=== PATIENT | male | born 1970 | race Caucasian/White ===

== ENCOUNTER 2021-12-13 05:37 | Emergency (ER) | payer SELFPAY ==
[2021-12-13 05:38] VITALS: BP 133/82; PULSE 98; RESP 17; TEMP 36.4; O2SAT 98; BMI 32.8
--- NOTE | 2021-12-13 06:03 | XRR_ITS ---
PROCEDURE INFORMATION: Exam: XR Chest Exam date and time: 12/13/2021 6:05 AM Age: 50 years old Clinical indication: Cough and fever and shortness of breath; Additional info: Dyspnea/cough TECHNIQUE: Imaging protocol: Radiologic exam of the chest. Views: 1 view. COMPARISON: CR XR chest 2V* [id number] 02/11/2020 1:14 PM FINDINGS: Lungs: No significant or acute findings. No consolidation. Pleural spaces: No significant costophrenic angle blunting. No pneumothorax. Heart/Mediastinum: Heart size is normal. Bones/joints: Old posterior left 7th rib fracture with callus formation. XR/XR chest 1V portable [id number] IMPRESSION: No acute abnormality demonstrated.
[2021-12-13 06:09] VITALS: BP 160/77; PULSE 88; RESP 18; O2SAT 99
--- NOTE | 2021-12-13 06:11 | ED_ITS ---
HPI - Dizziness General: Chief Complaint: Dizziness Stated Complaint: N\V Blood Pressure High\Fever Time Seen by Provider: 12/13/21 05:52 Source: patient Mode of arrival: ambulatory History of Present Illness: HPI Narrative: 50-year-old male presents emergency room complaining of nausea and vomiting. Began yesterday. He also likes blood pressure elevated is complaining some mild nondescript chest pain no shortness of breath but he does have a nonproductive cough he is not had any diarrhea he has had nausea vomiting some slight dizziness no true vertiginous symptoms. Subjective fever he is complaining little bit of right ear discomfort as well. No focal neurologic deficits noted. He does have a history of coronary disease there is no radiation of the chest discomfort into the neck arms or back. Generally just does not feel well. MD elicited complaint: dizziness Onset (ago): day(s) (1) Timing: gradual onset Severity: mild Description: lightheadedness Exacerbating factors: nothing Relieving factors: nothing Associated symptoms: Reports chest pain, cough, ear pressure, headache(s), malaise, nausea and vomiting; Denies change in hearing, chills, diaphoresis, ear discharge, fevers/chills, nasal congestion, palpitations, rash, short of breath, syncope, tinnitus or weakness Associated neuro symptoms: Deny confusion, difficulty speaking, dysphagia, diplopia, extremity weakness, facial numbness, facial weakness, gait changes, numbness in extremities or visual changes Review of Systems Const: Reports: malaise; Denies: chills or diaphoresis ENMT: Denies: ear discharge, change in hearing, tinnitus or nasal congestion Card: Reports: chest pain; Denies: palpitations or syncope Resp: Denies: dyspnea, productive cough or non-productive cough GI: Reports: nausea and vomiting; Denies: dysphagia : Denies: flank pain, dysuria, urinary frequency or urinary urgency Skin/Breast: Denies: rash or pruritus Neuro: Reports: headache(s); Denies: numbness in extremities or confusion PFS ED PFSH: Medical History (Updated 12/13/21 @ 09:07 by Lev Baugh DO) Hypertension Social History (Updated 12/13/21 @ 06:22 by Lev Baugh DO) Smoking and tobacco status: never smoked Alcohol intake: current Physical Exam Const: GENERAL APPEARANCE: cooperative and comfortable ORIENTATION/CONSCIOUSNESS: Yes awake, Yes oriented to person, Yes oriented to place and Yes oriented to time HENMT: COMMON NORMALS: normocephalic, atraumatic and hearing grossly normal bilaterally HEAD & SCALP: normocephalic and atraumatic Resp: COMMON NORMALS: normal respiratory effort, No retractions, No use of accessory muscles and clear to auscultation bilaterally AUSCULTATION: clear to auscultation bilaterally Cardio: COMMON NORMALS: regular rate, regular rhythm and No murmurs present (Cardio) RATE: regular rate RHYTHM: regular rhythm GI: COMMON NORMALS: Soft to palpation and No hepatosplenomegaly present AUSCULTATION: Yes normoactive bowel sounds PALPATION: Yes Soft to palpation, No Tenderness to palpation present (GI), No Guarding due to palpation present (GI) and Yes No hepatosplenomegaly present Extremity: COMMON NORMALS: normal to inspection, capillary refill normal, no clubbing, cyanosis or edema, no calf tenderness and no pedal edema Neuro: SENSORIUM/ORIENTATION: Yes oriented to person, Yes oriented to place an d Yes oriented to time Skin: COMMON NORMALS: no rashes or lesions noted GENERAL SKIN EXAM: no rashes or lesions noted Course Vital Signs: Vital signs: Vital Signs Temperature 97.6 F 12/13/21 05:38 Pulse Rate 88 12/13/21 08:05 Respiratory Rate 16 12/13/21 08:05 Blood Pressure 124/77 12/13/21 08:05 Pulse Oximetry 98 12/13/21 08:05 Oxygen Delivery Me thod 12/13/21 08:05 MDM - Dizziness Medical Decision Making Cardiac enzymes negative EKG unremarkable. Suspect patient's chest discomfort is related to his GI symptoms does not sound cardiac in nature he describes it with associated low-grade fever. We will discharge patient home he is feeling better after the fluids. Antiemetics as needed GlucoDock 24 to 48 hours and advance as tolerated. His COVID was negative. Medical Records I reviewed the patient's medical records. Lab Data I reviewed the patient's lab results. : 12/13/21 06:20 12/13/21 06:20 Radiology Impressions Chest X-Ray 12/13/21 06:03 IMPRESSION: No acute abnormality demonstrated. Laboratory Results WBC 5.0 10^3/uL (4.0-10.0) 12/13/21 06:20 RBC 3.92 10^6/uL (4.1-5.3) L 12/13/21 06:20 Hgb 14.1 g/dL (11.7-16.6) 12/13/21 06:20 Hct 42.1 % (42.0-52.0) 12/13/21 06:20 MCV 107.4 fl (80-94) H 12/13/21 06:20 MCH 36.0 pg (28.0-34.0) H 12/13/21 06:20 MCHC 33.5 g/dL (30.0-36.0) 12/13/21 06:20 RDW 12.3 % (12.1-15.1) 12/13/21 06:20 Plt Count 235 10^3/cmm (130-400) 12/13/21 06:20 MPV 10.7 fL (7.4-10.4) H 12/13/21 06:20 Neut % (Auto) 44.5 % 12/13/21 06:20 Lymph % (Auto) 36.9 % 12/13/21 06:20 [place] % (Auto) 8.8 % 12/13/21 06:20 Eos % (Auto) 8.6 % 12/13/21 06:20 Baso % (Auto) 1.0 % 12/13/21 06:20 Neut # (Auto) 2.22 10^3/uL (1.8-7.7) 12/13/21 06:20 Lymph # (Auto) 1.8 10^3/uL (0.8-4.8) 12/13/21 06:20 [place] # (Auto) 0.4 10^3/uL (0.2-0.9) 12/13/21 06:20 Eos # (Auto) 0.4 10^3/uL (0.0-0.8) 12/13/21 06:20 Baso # (Auto) 0.1 10^3/uL (0.0-0.1) 12/13/21 06:20 Nucleated RBC % (auto) 0 % 12/13/21 06:20 Nucleated RBCs # 0.0 /100WBC 12/13/21 06:20 Sodium 138 mmol/L (136-145) 12/13/21 06:20 Potassium 3.8 mmol/L (3.5-5.1) 12/13/21 06:20 Chloride 102 mmol/L (98-107) 12/13/21 06:20 Carbon Dioxide 22 mmol/L (22-29) 12/13/21 06:20 Anion Gap 17.8 (5-19) 12/13/21 06:20 BUN 14 mg/dL (6-20) 12/13/21 06:20 Creatinine 0.6 mg/dL (0.7-1.2) L 12/13/21 06:20 GFR Calculation 142.0 mL/min (90-130) H 12/13/21 06:20 Glucose 206 mg/dL (65-115) H 12/13/21 06:20 Calculated Osmolality 292 mOsm/kg (285-295) 12/13/21 06:20 Calcium 9.1 mg/dL (8.5-10.5) 12/13/21 06:20 Total Bilirubin 0.3 mg/dL (0.15-1.2) 12/13/21 06:20 AST 15 U/L (0-40) 12/13/21 06:20 ALT 19 U/L (0-41) 12/13/21 06:20 Alkaline Phosphatase 85 U/L (40-130) 12/13/21 06:20 Troponin T Baseline 7 ng/L (0-15) 12/13/21 06:20 Troponin T 120 Minute 9.42 ng/L (0-15) 12/13/21 08:27 Total Protein 6.5 g/dL (6.6-8.7) L 12/13/21 06:20 Albumin 3.7 g/dL (3.5-5.2) 12/13/21 06:20 Globulin 2.8 g/dL (1.3-4.6) 12/13/21 06:20 Coronavirus 229E (PCR) Not detected (NOT DETECT) 12/13/21 06:20 SARS-CoV-2 (PCR) Not detected (NOT DETECT) 12/13/21 06:20 Discharge Plan Discharge Patient Disposition: Home Clinical Impression: Gastroenteritis, Atypical chest pain Condition: Stable Prescriptions: New ondansetron HCl 4 mg tablet 4 mg PO Q6H PRN (Reason: nausea and vomiting) Qty: 20 0RF Discharge Orders: Discharge ED (Routine); Ordered 12/13/21 Ordered By: Lev Baugh Discharge Diet: Clear Liquid Discharge Activity: Increase activity as tolerated Patient Instructions: Opioid Safety, Pain Management Activity Restrictions/Additional Instructions: Clear liquid diet 24 to 48 hours advance as tolerated. 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
--- NOTE | 2021-12-13 06:18 | ECG_ITS ---
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 Measurements Intervals [place] Rate: 86 P: 56 IN: 141 QRS: 0 QRSD: 83 T: 62 QT: 399 QTc: 480 Interpretive Statements SINUS RHYTHM SEPTAL MYOCARDIAL INFARCTION , PROBABLY OLD [40+ ms Q WAVE IN V1/V2] Compared to ECG 11/06/2018 08:43:44 Myocardial infarct finding now present Short IN interval no longer present Electronically Signed On 12-13-2021 10:41:23 CDT by Catherine Mckeon M.D. [id number]
[2021-12-13] MEDS: ondansetron 2 mg/ML SDV 2 mL 4 MG IVP (06:28)
[2021-12-13] MEDS: sodium chloride 0.9% 1,000 ML 999 ML IV (06:30)
[2021-12-13 06:31] VITALS: BP 148/82; PULSE 84; RESP 18; O2SAT 98
[2021-12-13 06:42] LABS: Basophils # 0.1 10^3/uL (0.0-0.1); Eosinophils # 0.4 10^3/uL (0.0-0.8); Eosinophils % 8.6 %; Hematocrit 42.1 % (42.0-52.0); Hemoglobin 14.1 g/dL (11.7-16.6); Lymphocytes # 1.8 10^3/uL (0.8-4.8); Lymphocytes % 36.9 %; Mean Corpuscular HGB Conc 33.5 g/dL (30.0-36.0); Mean Corpuscular Volume 107.4 fl (80-94); Mean Platelet Volume 10.7 fL (7.4-10.4); Monocytes # 0.4 10^3/uL (0.2-0.9); Monocytes % 8.8 %; Neutrophils # 2.22 10^3/uL (1.8-7.7); Neutrophils % 44.5 %; Nucleated Red Blood Cells % 0 %; Platelet Count 235 10^3/cmm (130-400); Red Blood Count 3.92 10^6/uL (4.1-5.3); Red Cell Distribution Width 12.3 % (12.1-15.1)
[2021-12-13 06:52] VITALS: BP 137/88; PULSE 80; RESP 18; O2SAT 98
[2021-12-13 06:58] LABS: Alanine Aminotransferase 19 U/L (0-41); Albumin Level 3.7 g/dL (3.5-5.2); Alkaline Phosphatase 85 U/L (40-130); Anion Gap 17.8 (5-19); Aspartate Amino Transferase 15 U/L (0-40); Blood Urea Nitrogen 14 mg/dL (6-20); Calcium 9.1 mg/dL (8.5-10.5); Carbon Dioxide 22 mmol/L (22-29); Chloride 102 mmol/L (98-107); Globulin 2.8 g/dL (1.3-4.6); Glucose 206 mg/dL (65-115); Osmolality Calculated 292 mOsm/kg (285-295); Potassium 3.8 mmol/L (3.5-5.1); Sodium 138 mmol/L (136-145); Total Bilirubin 0.3 mg/dL (0.15-1.2); Total Protein 6.5 g/dL (6.6-8.7)
[2021-12-13 06:59] LABS: Troponin(5th) Baseline 7 ng/L (0-15)
[2021-12-13 07:00] LABS: Creatinine Clr Calc Pharmacy 160.2033
[2021-12-13 08:05] VITALS: BP 124/77; PULSE 88; RESP 16; O2SAT 98
--- NOTE | 2021-12-13 08:28 | ECG_ITS ---
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 Measurements Intervals [place] Rate: 77 P: 66 MO: 143 QRS: 15 QRSD: 86 T: 62 QT: 413 QTc: 470 Interpretive Statements SINUS RHYTHM SEPTAL MYOCARDIAL INFARCTION , PROBABLY OLD [40+ ms Q WAVE IN V1/V2] Compared to ECG 12/13/2021 06:18:19 No significant changes Electronically Signed On 12-13-2021 10:42:28 CDT by Catherine Mckeon M.D. [id number]
[2021-12-13 08:29] LABS: Adenovirus Not Detected (NOT DETECT); Chlamydia Pneumoniae Not Detected (NOT DETECT); Coronavirus 229E,HKU1,NL63,OC4 Not Detected (NOT DETECT); Human Metapneumovirus Not Detected (NOT DETECT); Human Rhinovirus/Enterovirus Not Detected (NOT DETECT); Influenza A Not Detected (NOT DETECT); Influenza A H1 Not Detected (NOT DETECT); Influenza A H1-2009 Not Detected (NOT DETECT); Influenza A H3 Not Detected (NOT DETECT); Influenza B Not Detected (NOT DETECT); Mycoplasma Pneumoniae Not Detected (NOT DETECT); Parainfluenza Virus Type 1 Not Detected (NOT DETECT); Parainfluenza Virus Type 2 Not Detected (NOT DETECT); Parainfluenza Virus Type 3 Not Detected (NOT DETECT); Parainfluenza Virus Type 4 Not Detected (NOT DETECT); Respiratory Syncytial Virus A Not Detected (NOT DETECT); Respiratory Syncytial Virus B Not Detected (NOT DETECT); SARS-COV-2 Not Detected (NOT DETECT)
[2021-12-13 09:03] LABS: Troponin 5 2HR 9.42 ng/L (0-15)
[2021-12-13 09:17] LABS: Troponin 5 2HR Delta 2.42 ABS# (0-10)
[2021-12-13 09:18] VITALS: BP 149/82; PULSE 81; RESP 16; O2SAT 98
== END 2021-12-13 09:20 | disposition home or self-care (01) ==
PROVIDERS: Emergency Provider Family Medicine
DX: K52.9 Noninfective gastroenteritis and colitis, unspecified (principal); R07.89 Other chest pain; Z20.822 Contact with and (suspected) exposure to COVID-19; I10 Essential (primary) hypertension
CPT/HCPCS: 71045; 80053; 84484; 85025; 87635; 93005; 96361; 96374; 99285; J2405; J7030

== ENCOUNTER 2023-07-26 09:33 | Emergency (ER) | payer SELFPAY ==
[2023-07-26 09:38] VITALS: BP 138/73; PULSE 73; RESP 16; TEMP 36.6; O2SAT 96; BMI 31.3
--- NOTE | 2023-07-26 09:54 | CT_ITS ---
WS: [id number] CT ABDOMEN PELVIS TECHNIQUE: Contrast-enhanced CT of the abdomen and pelvis with coronal and sagittal reformatted image s. CLINICAL INFORMATION: abd pain COMPARISON: None. DLP: 855.[address] scans at [facility] use at least one of these dose optimization techniques: automated e xposure control; mA and/or kV adjustment per patient size (includes targeted exams where dose is matc hed to clinical indication); or iterative reconstruction. FINDINGS: Fat-containing RIGHT inguinal hernia with induration extending along the spermatic cord. Th is may be due to recent reduction. No herniated bowel. RIGHT testicular vein appears decompressed in the abdomen/pelvis. Consider ultrasound in further evaluation Mild hepatomegaly. Diffuse fatty infiltration of the liver. Normal gallbladder. Normal portal vein an d splenic vein. Normal GE junction. Normal pancreas. Small splenule. Normal spleen. Celiac and SMA ar e patent. Normal caliber abdominal aorta. Adrenal glands are normal. Normal renal parenchymal enhance ment. No hydronephrosis. Mild diffuse bladder wall thickening although bladder is decompressed. Recom mend correlation for cystitis/UTI. Prostate calcification. Mild prostate enlargement measuring 3.9 cm . Normal pancreas. Normal sigmoid colon. No evidence of small or large bowel obstruction. Mild RIGHT colon and cecal con stipation. Tiny fat-containing umbilical hernia. No evidence of acute appendicitis. Suggestion of a t iny appendix. CT/CT abdomen pelvis w con* [id number] IMPRESSION: 1. Fat-containing RIGHT inguinal hernia with a small amount of induration. No herniated bowel. Recommend correlation for RIGHT groin pain. Ultrasound can be used in further evaluation 2. Bladder is decompressed with mild diffuse wall thickening. Recommend correl ation for cystitis/UTI. 3. Mild prostate enlargement. 4. Mild diffuse fatty infiltration of the liver. 5. Mild RIGHT colon and cecal constipation. 6. No other remarkable findings. Notified Puneet Winston MD at 07/26/2023 10:44 AM.
--- NOTE | 2023-07-26 09:55 | ED_ITS ---
HPI - Abdominal Pain 2 General: Chief Complaint: Abdominal Pain Stated Complaint: lower abd pain Time Seen by Provider: 07/26/23 09:51 Source: patient Mode of arrival: ambulatory Limitations: no limitations History of Present Illness: 52-year-old male states that he was work ing in strain he has been having some right lower quadrant pain since then he states the bleeding had a hernia he said he had a hernia for quite some time he said it was protruding out but is now reduced and he feels improved he rates his pain a 3 out of 10 currently has not seen anyone for this in the past. Associated Symptoms: Denies chills, diarrhea, dysuria, fever(s), nausea and vomiting Review of Systems 2 Const: Denies: fever(s), chills, body aches or change in appetite ENMT: Denies: throat pain or dental pain Card: Denies: chest pain Resp: Denies: dyspnea GI: Reports: abdominal pain; Denies: nausea, vomiting or diarrhea : Denies: dysuria Musc: Denies: neck pain or back pain Skin/Breast: Denies: rash Neuro: Denies: headache(s) PFSH ED 2 PFSH: Medical History Hyperglycemia Hypertension Social History Smoking and tobacco/nicotine status: never used tobacco/nicotine Alcohol intake: current Physical Exam 2 Const: COMMON NORMALS: no acute distress, patient oriented x3 and healthy appearing HENMT: COMMON NORMALS: normocephalic and atraumatic HEAD & SCALP: n ormocephalic and atraumatic Neck/C-Spine: COMMON NORMALS: full ROM and supple Chest: COMMONS NORMALS: normal inspection of the chest Resp: COMMON NORMALS: normal respiratory effort and No use of accessory muscles Cardio: COMMON NORMALS: regular rate, regular rhythm and No murmurs present (Cardio) RATE: regular rate RHYTHM: regular rhythm GI: COMMON NORMALS: Normal to inspection, nondistended, normoactive bowel sounds present, Soft to palpation and no masses PALPATION: Yes Soft to palpation OTHER: rlq tenderness no hernia at this time Extremity: COMMON NORMALS: normal to inspection and full ROM Neuro: COMMON NORMALS: patient oriented x3, moves all extremities and no focal motor deficits Psych: COMMON NORMALS: mental status grossly normal, Normal thought process present and cooperative THOUGHT PROCESS: Normal thought process present Skin: COMMON NORMALS: no rashes or lesions noted and no wounds GENERAL SKIN EXAM: no rashes or lesions noted Course 2 Vital Signs: Vital signs: Vital Signs Temperature 97.8 F 07/26/23 09:38 Pulse Rate 70 07/26/23 11:46 Respiratory Rate 16 07/26/23 10:19 Blood Pressure 155/82 07/26/23 11:46 Pulse Oximetry 98 07/26/23 11:46 Oxygen Delivery Me thod Room Air 07/26/23 11:46 MDM - Abdominal Pain Medical Decision Making Patient presents here with abdominal pain imaging does show a right inguinal hernia he has no signs of incarceration he stable for discharge he is to follow- up with surgery return if worsening he understands agrees to plan. Medical Records I reviewed the patient's medical records. Lab Data I reviewed the patient's lab results. 07/26/23 09:49 07/26/23 09:49 Labs/Radiology: Radiology Impressions Abdomen/Pelvis CT 07/26/23 09:54 IMPRESSION: 1. Fat-containing RIGHT inguinal hernia with a small amount of induration. No herniated bowel. Recommend correlation for RIGHT groin pain. Ultrasound can be used in further evaluation 2. Bladder is decompressed with mild diffuse wall thickening. Recommend correlation for cystitis/UTI. 3. Mild prostate enlargement. 4. Mild diffuse fatty infiltration of the liver. 5. Mild RIGHT colon and cecal constipation. 6. No other remarkable findings. Notified Puneet Winston MD at 07/26/2023 10:44 AM. Scrotum Ultrasound 07/26/23 10:43 IMPRESSION: 1. Small RIGHT hydrocele 2. Normal vascularity to both testicles. No torsion. 3. Small LEFT testicle likely due to developmental undescended LEFT testicle with corrective surgery 4. Heterogeneous appearance to the epididymis but no evidence of epididymitis. Normal vascularity. 5. Spermatic cords appear normal Laboratory Results WBC 6.21 10^3/uL (3.29-11.43) 07/26/23 09:49 RBC 4.48 10^6/uL (3.85-5.65) 07/26/23 09:49 Hgb 15.10 g/dL (11.27-16.99) 07/26/23 09:49 Hct 45.0 % (37-53) 07/26/23 09:49 MCV 100.4 fl (82-101) 07/26/23 09:49 MCH 33.7 pg (27-33) H 07/26/23 09:49 MCHC 33.6 g/dL (30-55) 07/26/23 09:49 RDW 11.6 % (12.1-15.1) L 07/26/23 09:49 Plt Count 257 10^3/cmm (157-399) 07/26/23 09:49 MPV 10.1 fL (7.4-10.4) 07/26/23 09:49 Neut % (Auto) 55.8 % 07/26/23 09:49 Lymph % (Auto) 31.1 % 07/26/23 09:49 [place] % (Auto) 7.4 % 07/26/23 09:49 Eos % (Auto) 4.5 % 07/26/23 09:49 Baso % (Auto) 1.0 % 07/26/23 09:49 Neut # (Auto) 3.47 10^3/uL (1.8-7.7) 07/26/23 09:49 Lymph # (Auto) 1.9 10^3/uL (0.8-4.8) 07/26/23 09:49 [place] # (Auto) 0.5 10^3/uL (0.2-0.9) 07/26/23 09:49 Eos # (Auto) 0.3 10^3/uL (0.0-0.8) 07/26/23 09:49 Baso # (Auto) 0.1 10^3/uL (0.0-0.1) 07/26/23 09:49 Nucleated RBC % (auto) 0 % 07/26/23 09:49 Nucleated RBCs # 0.0 /100WBC 07/26/23 09:49 Sodium 135 mmol/L (136-145) L 07/26/23 09:49 Potassium 4.4 mmol/L (3.5-5.1) 07/26/23 09:49 Chloride 101 mmol/L (98-107) 07/26/23 09:49 Carbon Dioxide 25 mmol/L (22-29) 05/30/24 09:49 Anion Gap 13.4 (5-19) 07/26/23 09:49 BUN 10 mg/dL (6-20) 07/26/23 09:49 Creatinine 0.8 mg/dL (0.7-1.2) 07/26/23 09:49 GFR Calculation 101.1 mL/min (90-130) 07/26/23 09:49 Glucose 181 mg/dL (65-115) H 07/26/23 09:49 Calculated Osmolality 284 mOsm/kg (285-295) L 07/26/23 09:49 Calcium 9.2 mg/dL (8.5-10.5) 07/26/23 09:49 Total Bilirubin 0.3 mg/dL (0.15-1.2) 07/26/23 09:49 AST 21 U/L (0-40) 07/26/23 09:49 ALT 22 U/L (0-41) 07/26/23 09:49 Alkaline Phosphatase 84 U/L (40-130) 07/26/23 09:49 Total Protein 7.1 g/dL (6.6-8.7) 07/26/23 09:49 Albumin 4.2 g/dL (3.5-5.2) 07/26/23 09:49 Globulin 2.9 g/dL (1.3-4.6) 07/26/23 09:49 Lipase 34 U/L (13-60) 07/26/23 09:49 Urine Color Yellow (Yellow) 07/26/23 11:40 Urine Appearance Clear (CLEAR) 07/26/23 11:40 Urine pH 5 (5-7) 07/26/23 11:[address] 1.025 (1.005-1.030) 07/26/23 11:40 Urine Protein Neg (Negative) 07/26/23 11:40 Urine Glucose (UA) Norm (Normal) 07/26/23 11:40 Urine Ketones Negative (Negative) 07/26/23 11:40 Urine Blood Neg (Negative) 07/26/23 11:40 Urine Nitrate Negative (Negative) 07/26/23 11:40 Urine Bilirubin Neg (Negative) 07/26/23 11:40 Urine Urobilinogen Norm mg/dL (Negative) 07/26/23 11:40 Ur Leukocyte Esterase Negative (Negative) 07/26/23 11:40 All radiology interpretation(s) finalized by discharge Discharge Plan Discharge Patient Disposition: Home Clinical Impression: Abdominal pain, Hernia, inguinal, right Condition: Stable Prescriptions: No Action No Known Home Medications Discharge Orders: Discharge ED (Routine); Ordered 07/26/23 Ordered By: Puneet Winston Referrals: Keagan Mack DO [Physician] - 1-3 days Discharge Diet: Advance as tolerated Discharge Activity: Resume usual activity Patient Instructions: Inguinal Hernia (ED), Abdominal Pain (ED) Coding Level of Care Code ED Chief I Dispatcher for Leonel Cintron
[2023-07-26 09:58] LABS: Basophils # 0.1 10^3/uL (0.0-0.1); Eosinophils # 0.3 10^3/uL (0.0-0.8); Eosinophils % 4.5 %; Lymphocytes # 1.9 10^3/uL (0.8-4.8); Lymphocytes % 31.1 %; Mean Corpuscular HGB Conc 33.6 g/dL (30-55); Mean Corpuscular Hemoglobin 33.7 pg (27-33); Mean Corpuscular Volume 100.4 fl (82-101); Mean Platelet Volume 10.1 fL (7.4-10.4); Monocytes # 0.5 10^3/uL (0.2-0.9); Monocytes % 7.4 %; Neutrophils # 3.47 10^3/uL (1.8-7.7); Neutrophils % 55.8 %; Nucleated Red Blood Cells % 0 %; Platelet Count 257 10^3/cmm (157-399); Red Blood Count 4.48 10^6/uL (3.85-5.65); Red Cell Distribution Width 11.6 % (12.1-15.1); White Blood Count 6.21 10^3/uL (3.29-11.43)
[2023-07-26] MEDS: iohexol 350 mg/mL 500 mL Btl (per mL) IV (10:10)
[2023-07-26 10:16] LABS: Alanine Aminotransferase 22 U/L (0-41); Albumin Level 4.2 g/dL (3.5-5.2); Alkaline Phosphatase 84 U/L (40-130); Anion Gap 13.4 (5-19); Aspartate Amino Transferase 21 U/L (0-40); Blood Urea Nitrogen 10 mg/dL (6-20); Calcium 9.2 mg/dL (8.5-10.5); Carbon Dioxide 25 mmol/L (22-29); Chloride 101 mmol/L (98-107); Creatinine Clr Calc Pharmacy 114.7119; Globulin 2.9 g/dL (1.3-4.6); Glomerular Filtration Rate 101.1 mL/min (90-130); Glucose 181 mg/dL (65-115); Lipase 34 U/L (13-60); Osmolality Calculated 284 mOsm/kg (285-295); Potassium 4.4 mmol/L (3.5-5.1); Sodium 135 mmol/L (136-145); Total Bilirubin 0.3 mg/dL (0.15-1.2); Total Protein 7.1 g/dL (6.6-8.7)
[2023-07-26 10:19] VITALS: RESP 16
[2023-07-26] MEDS: morphine 4 mg/mL SDV 1 mL IVP (10:19)
[2023-07-26] MEDS: ondansetron 2 mg/ML SDV 2 mL 4 MG IVP (10:20)
[2023-07-26 10:22] VITALS: BP 155/82; PULSE 69; O2SAT 95
--- NOTE | 2023-07-26 10:43 | US_ITS ---
WS: [id number] SCROTAL ULTRASOUND EXAMINATION CLINICAL INFORMATION: test pain. Patient reports prior LEFT testicular surgery as child COMPARISON: None. FINDINGS: TESTES Normal RIGHT testicle. Smaller LEFT testicle likely due to prior undescended testicle Color Doppler: Normal color Doppler flow pattern. Right testes size: 2.7 cm x 3.5 cm x 3.4 cm. Left testes size: 1.5 cm x 2.8 cm x 1.9 cm. EPIDIDYMIDES Heterogeneous epididymis bilaterally with normal vascularity Color Doppler: Normal color Doppler flow pattern. Right epididymis size: 1.6 cm x 1.2 cm x 1.5 cm. Left epididymitis size: 0.8 cm x 0.8 cm x 1.0 cm. HYDROCELE Small RIGHT VARICOCELE None. OTHER FINDINGS None. US/US scrotum 15504 IMPRESSION: 1. Small RIGHT hydrocele 2. Normal vascularity to both testicles. No torsion. 3. Small LEFT testicle likely due to developmental undescended LEFT testicle w ith corrective surgery 4. Heterogeneous appearance to the epididymis but no evidence of epididymitis. Normal vascularity. 5. Spermatic cords appear normal
[2023-07-26 11:46] VITALS: BP 155/82; PULSE 70; O2SAT 98
[2023-07-26 11:46] LABS: Add Urine Microscopic? NO; Charge for UA Resulting for Rev
[2023-07-26 11:54] LABS: Bilirubin Urine Neg (Negative); Blood Urine Neg (Negative); Glucose Urine UA Norm (Normal); Ketones Urine Negative (Negative); Leukocyte Esterase Urine Negative (Negative); Nitrate Urine Negative (Negative); Protein Urine Neg (Negative); Specific Gravity, Urine 1.025 (1.005-1.030); Urine Appearance Clear (CLEAR); Urine Color Yellow (Yellow); Urobilinogen Urine Norm (Negative); pH Urine 5 (5-7)
--- NOTE | 2023-07-26 12:04 | DCPLANNER ---
message sent to gen surgery for a hernia
[2023-07-26 12:18] VITALS: BP 155/82; PULSE 70; RESP 16; TEMP 36.6; O2SAT 98
== END 2023-07-26 12:19 | disposition home or self-care (01) ==
PROVIDERS: Emergency Provider Emergency Medicine
DX: K40.90 Unilateral inguinal hernia, without obstruction or gangrene, not specified as recurrent (principal); I10 Essential (primary) hypertension
CPT/HCPCS: 74177; 76870; 80053; 81003; 83690; 85025; 96374; 96375; 99285; J2270; J2405; Q9967

== ENCOUNTER 2023-09-25 05:38 | Day surgery (SDC) | payer OTHER, SELFPAY ==
[2023-09-25] VITALS (10 sets, daily range): BP systolic 114–151; BP diastolic 65–89; PULSE 72–105; RESP 16–20; TEMP 36.3–36.6; O2SAT 92–96; BMI 34.7
[2023-09-25] MEDS: sodium chloride 0.9% 1,000 ML 30 ML IV (06:12)
--- NOTE | 2023-09-25 06:28 | ANES.PREANE2 ---
Pre-Anesthetic Assessment Height/Weight: Height 1.68 m Weight 97.522 kg Temp Pulse Resp BP Pulse Ox O2 Del Method 97.4 F L 72 16 126/86 96 Room Air 09/25/23 06:02 09/25/23 06:02 09/25/23 06:02 09/25/23 06:02 09/25/23 06:02 09/25/23 06:02 Operation Date: 09/25/23 07:00 Proposed Procedures p Laparoscopic Inguinal Hernia Repair with mesh [id number] K40.20(Bilateral) - Keagan Mack DO Familial anesthetic complications: None Was Beta Onel taken within 24 hours: N/A Was Clonidine taken within 24 hours: N/A Last intake: Intake Last Liquid Date 09/24/23 Last Liquid Time 21:30 Last Solid Date 09/24/23 Last Solid Time 21:00 Social Tobacco (vapes) and No alcohol Exam alert, oriented x 3, clear to auscultation bilaterally and regular rate & rhythm Airway Mallampati: Class IV Dentition: other (2 loose upper R teeth in the back (very loose)) CV/HEM Hypertension GI Gastroesophageal Reflux Disease Anesthetic Plan ASA status: 2 Anesthesia: General Risk of > 500 ml blood loss (7ml/kg in children): No Medications/Allergies Home Medications Medication Instructions Recorded Confirmed Last Taken Type pantoprazole 40 mg tablet,delayed 40 mg PO BID PRN acid reflux 6 09/17/23 09/24/23 09/24/23 Rx release (Protonix) weeks #28 tabs Allergies Allergy/AdvReac Type Severity Reaction Status Date / Time No Known Allergies Allergy Verified 09/25/23 05:53 Current Medications Generic Name Dose Route Start Last Admin Trade Name Freq PRN Reason Stop Dose Admin Sodium Chloride 1,000 mls @ 30 mls/hr 09/25/23 06:00 09/25/23 06:12 Sodium Chloride 0.9% IV 09/26/23 05:59 30 mls/hr .Q24H ROMAN Administration PFSH Anesthesia Medical History (Updated 09/17/23 @ 09:57 by Keagan Mack DO) Undescended left testicle Hyperglycemia Hypertension Social History Smoking and tobacco/nicotine status: current every day tobacco/nicotine user Alcohol intake: current Data Anesthesia Cardiac Studies: No Data to Display
--- NOTE | 2023-09-25 06:58 | W.PM.OPSUD ---
Surgery/Procedure H&P Update DATE OF PROCEDURE: September 25, 2023 DATE H&P PERFORMED: 09/17/23 H&P UPDATE INFORMATION: I have reviewed H&P completed within last 30 days, I have examined patient prior to procedure and No changes to prior documentation PLANNED PROCEDURE: Operation Date: 09/25/23 07:00 Proposed Procedures p Laparoscopic Inguinal Hernia Repair with mesh [id number] K40.20(Bilateral) - Keagan Mack DO
[2023-09-25] MEDS: ceFAZolin 2,000 mg SDV 2000 MG IVP (07:01)
[2023-09-25] MEDS: lidocaine-epi 1% 20 mL INJ 10 ML INJECTION (07:50)
[2023-09-25] MEDS: tranexamic acid 1,000 mg/10mL SDV 1000 MG IV (08:00)
--- NOTE | 2023-09-25 08:21 | PM.OP ---
Operative Report Date of procedure: September 25, 2023 Surgeon: Keagan Mack DO Procedure: Pre-op diagnosis: Bilateral inguinal hernias Post-op diagnosis: Right indirect inguinal hernia Left direct inguinal hernia Procedure done: Laparoscopic (TEPP) repair of right inguinal hernia with mesh Laparoscopic (TEPP) repair of left inguinal hernia with mesh Implants: Left and right extra-large 3D max Bard meshes Specimens removed/disposition: None Surgeon: Keagan Mack DO Anesthesia: General and Local Estimated blood loss (mL): 5 Complications: None apparent Brief History: This is a very pleasant 52-year-old gentleman who presented my office with bilateral inguinal hernias. Laparoscopic repair with mesh was indicated. The risks and benefits were explained and documented. Procedure: Patient was wheeled into the operative room and placed on the OR table in a supine position. Abdomen was inspected prepped and draped in usual sterile fashion. Time-out was performed and all present were in agreement. A 15 blade scalpel was used to make 1.2 centimeter incision infraumbilically. Combination of sharp and blunt dissection was performed down to the anterior rectus sheath which was opened sharply. The dissecting balloon was then inserted into the space of Retzius and blown up. We put the camera into the port and identified that we were in the correct space. I then placed 2 5 millimeter trocars suprapubically in the midline. I then used endokitners to bluntly dissect in the space of Retzius out laterally. An indirect inguinal hernia was identified on the right. Blunt dissection was performed to dissect down the hernia sac until the vas deferens dove medially. An extra-large 3D max Bard right inguinal mesh was then placed into the space of Retzius. The mesh was unrolled and tacked once medially at the pubic bone. The mesh laid out nicely over the spermatic cord. An indirect inguinal hernia was identified on the left. Blunt dissection was performed to dissect down the hernia sac until the vas deferens dove medially. An extra-large 3D max Bard left inguinal mesh was then placed into the space of Retzius. The mesh was unrolled and tacked once medially at the pubic bone. The mesh laid out nicely over the spermatic cord. Hernia sacs were held underneath the meshes as the insufflation was released. Incisions were closed with 4 O Vicryl in a subcuticular interrupted fashion. Skin glue was applied. Patient tolerated the procedure well.
[2023-09-25] MEDS: tranexamic acid 1,000 mg/10mL SDV 1000 MG (09:00)
--- NOTE | 2023-09-25 09:40 | ANE.PACU2 ---
Inpatient post-anesthesia follow up: Airway intact: Yes Vital signs: Temperature 97.8 F Pulse Rate 89 Respiratory Rate 16 Blood Pressure 151/79 Pulse Oximetry 95 Oxygen Delivery Me thod Room Air Oxygen Flow Rate Fraction of Inspir ed Oxygen Hydration adequate: Yes Nausea and vomiting: No Pain level: 1 Mental status: Baseline
== END 2023-09-25 09:40 | disposition home or self-care (01) ==
PROVIDERS: Visit Provider Surgery
PROC: (CPT 49650; principal; 2023-09-25 07:00)
DX: K40.20 Bilateral inguinal hernia, without obstruction or gangrene, not specified as recurrent (principal); I10 Essential (primary) hypertension; K21.9 Gastro-esophageal reflux disease without esophagitis; F17.200 Nicotine dependence, unspecified, uncomplicated; K59.00 Constipation, unspecified
CPT/HCPCS: 49650; 51702; C1781; J0690; J1100; J1170; J2371; J2405; J2704; J3010; J3490; J7030

== ENCOUNTER 2023-11-21 06:00 | Outpatient (CLI) | payer OTHER, MEDICAID, SELFPAY | END 2023-11-21 06:01 | disposition home or self-care (01) | LOC: RAD 11-30 13:12 | DX: I10 Essential (primary) hypertension (principal) | CPT/HCPCS: 80053; 80061; 83036; 84443 ==

== ENCOUNTER → 2023-11-21 08:32 | Outpatient (BNVA) | payer OTHER, MEDICAID, SELFPAY | DX: R06.02 Shortness of breath (principal); G47.00 Insomnia, unspecified; I10 Essential (primary) hypertension; B35.1 Tinea unguium; R07.9 Chest pain, unspecified; Z76.89 Persons encountering health services in other specified circumstances | CPT/HCPCS: 93005 ==

== ENCOUNTER 2023-12-10 12:31 | Outpatient (CLI) | payer OTHER, MEDICAID, SELFPAY ==
--- NOTE | 2023-12-10 | ECG_ITS ---
[facility]10 Pat Name: Angel Colby Department: Room: Gender: Male Hop Farmer: : 1970 Requested By: Lelo Ny Order Number: [id number] Ryley MD: Desirae Colorado M.D. Interpretive Statements PROCEDURE: At the baseline, the patient's blood pressure was 141/90 with a heart rate of 79. The baseline electrocardiogram showed normal sinus rhythm with normal ST-Ts.. The patient exercised for 4 minutes and 22 seconds on a standard Jared protocol. Patient attained a maximum heart rate of 127 beats per minute(76% of the maximum predicted heart rate) with a blood pressure at the peak exercise of 154/83 mm Hg. The EKG at the peak exercise revealed no significant changes. Patient did not have any chest pain or any significant cardiac arrhythmias with the exercise During the recovery phase, there were no new changes. Blood pressure at the end of the recovery phase was 162/107 mm Hg with a heart rate of 85 per minute. CONCLUSION: 1. Normal EKG response to treadmill exercise 2. Suboptimal exercise 3. No exercise-induced chest pain or cardiac arrhythmia 4. Slightly impaired exercise tolerance, attained a maximum of 7.0 METs Lung unchanged pre/post procedure; Intraprocedure shortess of breath; Symptoms resoled by discharge Electronically Signed On 12-16-2023 18:53:46 CDT by Desirae Colorado M.D. [email or web address]
[2023-12-10 12:49] VITALS: BMI 36.3
[2023-12-10 13:32] VITALS: BP 159/61; PULSE 91
== END 2023-12-10 12:32 | disposition home or self-care (01) ==
DX: R06.02 Shortness of breath (principal)
CPT/HCPCS: 93017

== ENCOUNTER 2023-12-21 06:01 | Outpatient (CLI) | payer OTHER, MEDICAID, SELFPAY ==
--- NOTE | 2023-12-21 06:15 | USCV_ITS ---
Angel Colby Age: 52 Gender: M : 1970 Exam Date: 12/21/2023 06:11 Ordering Phys: Lelo Ny NP Technologist: ROSAURA Exam Location: [facility] [place] Indication: cp BP: 130 / 80 HR: 72 Rhythm: Sinus Technical Quality: Adequate MEASUREMENTS (Male / Female) Normal Values 2D ECHO LV Diastolic Diameter PLAX 5.0 cm 4.2 - 5.9 / 3.9 - 5.3 cm IVS Diastolic Thickness 1.3 cm 0.6 - 1.0 / 0.6 - 0.9 cm IVS Systolic Thickness 1.4 cm LVPW Diastolic Thickness 1.0 cm 0.6 - 1.0 / 0.6 - 0.9 cm LVPW Systolic Thickness 1.4 cm LVOT Diameter 2.1 cm LV Ejection Fraction 2D Teich 56.7 % LV Ejection Fraction MOD 4C 59.4 % LV Ejection Fraction MOD 2C 63.9 % LV Ejection Fraction 2C AL 64.4 % LA Diameter 3.8 cm RA Systolic Volume 4C AL 41.9 ml RA Systolic Volume 4C MOD 39.1 ml LA Sys Volume AL 60.0 cm cubed LA Sys Volume Index AL 26.5 cm cubed/m squared Aorta at Sinotubular Diameter 3.1 cm IVC Diameter 1.7 cm M-MODE LA Ao Ratio MM 1.3 AV Cusp Separation MM 3.0 cm DOPPLER AV Peak Velocity 149.3 cm/s LVOT Peak Velocity 96.0 cm/s AV Area Cont Eq vti 3.0 cm squared AV Area Cont Eq pk 2.2 cm squared MV Peak Velocity 113.0 cm/s MV Area PHT 3.2 cm squared Mitral E to A Ratio 1.1 TV Peak Velocity 140.5 cm/s TR Peak Velocity 148.0 cm/s TR Peak Gradient 8.8 mmHg TV Peak E Velocity 89.0 cm/s Right Atrial Pressure 3.0 mmHg Pulmonary Artery Systolic Pressu 11.8 mmHg PV Peak Velocity 117.0 cm/s FINDINGS Left Ventricle Normal left ventricular size and systolic function, EF 64%.no regional wall motion abnormalities. Right Ventricle The right ventricle is normal in size and function. Right Atrium The right atrium is normal in size. Left Atrium The left atrium is normal in size. Mitral Valve Trace mitral valve regurgitation. Aortic Valve No gross abnormalities noted Tricuspid Valve Trace tricuspid valve regurgitation. Estimated pulmonary artery peak systolic pressure within normal limits Pulmonic Valve No gross abnormalities noted Pericardium Normal pericardium without effusion. Aorta Normal ascending aorta dimension. IVC Normal inferior vena cava. CONCLUSIONS Normal left ventricular size and systolic function, EF 64%.no regional wall motion abnormalities. Trace mitral valve regurgitation. Trace tricuspid valve regurgitation. Estimated pulmonary artery peak systolic pressure within normal limits. There is no pericardial effusion. There are no intracardiac masses. No similar previous studies are available for comparison Dr Desirae Colorado MD FACC (Electronically Signed) Final Date: 22 December 2023 15:19 S
== END 2023-12-21 06:02 | disposition home or self-care (01) ==
LOC: RAD 06:02
DX: R06.02 Shortness of breath (principal)
CPT/HCPCS: 93306